=== PATIENT | female | born 1990 | race Caucasian/White ===

== ENCOUNTER 2025-09-09 22:37 | Emergency (ER) | payer SELFPAY ==
[2025-09-09 22:39] VITALS: BP 132/94
--- NOTE | 2025-09-09 23:13 | ED.SKININJ ---
HPI-Injury
General
Chief Complaint: Eye Problems
Source: patient
Exam Limitations: none
Time Seen by Provider: 09/09/25 22:47
Nursing documentation reviewed up to this point in time: agreed with
History of Present Illness-Injury
Initial Injury comments:
Note:
CHIEF COMPLAINT(S)
Foreign body sensation and pain in the eye.
HISTORY OF PRESENT ILLNESS
The patient is a 35-year-old female who presents with discomfort and pain in her eye. She describes a sensation as if there is something in the eye, leading to a feeling of roughness and discomfort. She reports that the condition has persisted
despite not wearing contact lenses for some time. The patient indicates that the pain in her eye, which she describes as severe and ash to a 'burning' sensation, began within the past three days. She has tried to manage the symptoms at home by
resting, but the discomfort and pain have persisted. The patient denies any recent trauma to the eye or exposure to potential irritants or allergens. She was administered tetanus prophylaxis within the last three years.
PAST MEDICAL AND SURGICAL HISTORY
Not discussed in the conversation.
PHYSICAL EXAM
General: Alert, no acute distress.
Skin: Warm, dry.
Head: Normocephalic, atraumatic.
Neck: Supple, trachea midline.
Eye, Ears, Nose, Mouth and Throat: Eyes with foreign body sensation, significant for discomfort, but no mention of visible foreign body or redness; oral mucosa moist. Everted both eyelids with no obvious foreign body. Eye was irrigated
Cardiovascular: Normal peripheral perfusion, no edema.
Respiratory: Respirations are non-labored.
Musculoskeletal: Normal range of motion, normal strength.
Neurological: Alert and oriented to person, place, time, and situation, no focal neurological deficit observed.
Psychiatric: Cooperative, appropriate mood and affect.
PROBLEM LIST
Acute:
- Foreign body sensation and pain in the eye
PLAN
The patient received antibiotic eye drops to be administered every four hours while awake for the next three to five days. The anticipated outcome of this treatment is the regeneration of the cornea, with significant improvement expected within
twelve hours and full regeneration over a few days. The patient was advised on proper administration to avoid closing the eye, and the importance of cleaning any crusting to prevent additional irritation was emphasized. Follow-up was suggested if
significant pain persists beyond the initial treatment period.
DIFFERENTIAL DIAGNOSIS
The Differential Diagnosis includes, in no particular order and is not limited to:
1. Corneal abrasion
2. Foreign body in the eye
3. Conjunctivitis
4. Allergic reaction
5. Keratitis
6. Dry eye syndrome
7. Uveitis
8. Blepharitis
9. Chemical eye injury
10. Glaucoma
Disposition:
SUMMARY OF ENCOUNTER
The patient is a 35-year-old female who presented with complaints of foreign body sensation and pain in her right eye. The physical exam revealed a corneal abrasion located at the 12 oclock position on her right eye. An eye examination was performed
using fluorescein staining and alkan, which was well-tolerated by the patient. She has not been wearing contact lenses, and her tetanus shots are current.
ASSESSMENT
The patient presents with a corneal abrasion of the right eye.
EMERGENCY TREATMENTS ADMINISTERED
An eye examination was conducted using fluorescein staining and topical anesthesia with alkan.
PLAN
The patient was prescribed gentamicin ophthalmic drops to prevent infection and promote healing of the corneal abrasion.
PATIENT EDUCATION AND COUNSELING
The patient was advised on the proper administration of gentamicin eye drops. Instructions were provided on the importance of avoiding eye irritation and proper eye hygiene to assist in the healing process. She was advised to avoid wearing contact
lenses until cleared by the inspector packer glass container.
FOLLOW-UP INSTRUCTIONS
The patient was advised to follow up with ophthalmology for further evaluation and management.
MEDICATION RECONCILIATION
Gentamicin eye drops were prescribed to be used as directed.
MEDICAL DECISION MAKING
-Complexity of Data Reviewed: Acute problems affecting care include a corneal abrasion of the right eye. Differential diagnosis to consider includes foreign body in the eye, conjunctivitis, keratitis, and chemical eye injury.
-Data:
Category 1: Fluorescein staining and alkan eye exam were performed to confirm the diagnosis of corneal abrasion.
-Risk: Prescription medication was prescribed: gentamicin eye drops.
DIAGNOSIS
Corneal abrasion, right eye (ICD-10: S05.01XA).
Phy Exam
Physical Exam
Physical Exam:
.
Eye Exam
Eye Exam: PERRL and EOMI
Eye Exam General: PERRL: bilateral and EOM intact: bilateral
Cornea Exam: abrasion: Right
Course
Orders/Labs/Results
Orders:
Orders
09/09/25 23:12
Gentamicin [Genoptic 0.3% Eye Drops] See Dose Instructions OPHTH NOW STA
09/09/25 23:13
Purified Water Eye Wash [Dacriose Eye Wash Solution] 120 ml .ROUTE .STK-MED ONE
Tetracaine HCl [Tetracaine 0.5% Ophthalmic Solution] 1 drop .ROUTE .STK-MED ONE
Vital Signs
Initial and Last Documented VS:
Initial Vital Signs
Temp Pulse Resp BP Pulse Ox
97.5 F 68 20 132/94 100
09/09/25 22:39 09/09/25 22:39 09/09/25 22:39 09/09/25 22:39 09/09/25 22:39
Last Documented Vital Signs
Temp Pulse Resp BP Pulse Ox
97.5 F 68 20 132/94 100
09/09/25 22:39 09/09/25 22:39 09/09/25 22:39 09/09/25 22:39 09/09/25 23:20
*Pulse Oximetry
SaO2: 100
Oxygen Mode of Delivery: Room air
Patient hypoxic: no
*Critical Care Note
Total Time (30-74mins, 75-104mins- exclusive of procedures): Not Applicable
ED Attending Note
-
Portions of this chart may have been created with voice recognition software.� Occasional wrong word or��sound alike� substitutions may have occurred due to the inherent limitations of voice recognition software.
Discharge Plan
Departure
Patient Disposition: Home (Routine Discharge)
Date of Disposition: 09/09/25
Time of Disposition: 23:33
Patient with high blood pressure during this ER visit?: Yes
Condition: Good
Discharge Problem:
Abrasion, corneal
Instructions: Corneal Abrasion (DC), How to Use Eye Drops, BLOOD PRESSURE
Referrals:
Timmy Berry MD [Family Provider, Family Practice]
Ashish Espinoza MD [Active, Ophthalmology]
Activity Restrictions/Additional Instructions:
Thank You for choosing [facility].
It was a pleasure meeting you and taking part in your care. We hope for your continued healing and wellness.
Please read discharge instructions in their entirety. However, they are for general education and may not describe your exact diagnosis at discharge. Information on your ER visit and medical conditions were discussed with you along with appropriate
follow up information...
If indicated, please take your medications as instructed and indicated on discharge paperwork.
Please schedule a follow up appointment as directed. Call to schedule an appointment
Please return to the emergency department with ANY change in, persisting, or worsening of symptoms. If any of your symptoms do not improve, or persist, or become more severe within 6-12 hours, please return to the emergency department for further
care.
Please return to the emergency department if you develop a headache, neck pain/stiffness, fever greater than 100.4F, chest pain, shortness of breath, persistent nausea, vomiting, slurred speech, difficulty walking, numbness/tingling, weakness, signs
of infection or any other symptoms that are worrisome to you.
If you have any questions or concerns please do not hesitate to call the Hospital at .
Interventions
Interventions:
*Risk Screen - Suicide Last Done: 09/09/25 22:39
*General Assessment Last Done: 09/09/25 22:39
*Neglect/Abuse Screening Last Done: 09/09/25 22:39
*ED COVID-19 Vaccine History Last Done: 09/09/25 22:39
*ED Influenza Vaccine History Last Done: 09/09/25 22:39
[facility] Fall Risk Assessment Tool Last Done: 09/09/25 22:50
Discharge Date and Time
Print Language: ARMENIAN
[2025-09-09] MEDS: GENOPTIC 0.3% EYE DROPS 1 DROP OPHTH (23:17)
== END 2025-09-09 23:40 | disposition home or self-care (01) ==
LOC: EMR 22:37
PROVIDERS: EMERGENCY PHYSICIAN Student in an Organized Health Care Education/Training Program; FAMILY PHYSICIAN Family Medicine
DX: S05.01XA Injury of conjunctiva and corneal abrasion without foreign body, right eye, initial encounter (principal); X58.XXXA Exposure to other specified factors, initial encounter
CPT/HCPCS: 99283